=== PATIENT | female | born 1960 | race Caucasian/White ===

== ENCOUNTER 2019-06-16 02:26 | Inpatient (IN) | payer MEDICARE ==
[~2019-06-16] VITALS: Ht 160 cm; Wt 66.2 kg
[2019-06-16] VITALS (7 sets, daily range): BP systolic 105–129; BP diastolic 62–99
[~2019-06-16 02:26] MED LIST: ACET500T68 PO; ALPR-429 PO; CHOL10005 PO; IBUP800T37 PO; MULT1CAP59 PO; TRAM-420 PO
[2019-06-16] MEDS ORDERED: NS(*) 0.9% 500 ML BAG 500 ML ONE (08:16)
[2019-06-16] MEDS ORDERED: PROPOFOL EMUL(*) 10MG/ML 20 ML 20 ML ONE ×2 (09:13→13:43)
[2019-06-16] MEDS ORDERED: PROPOFOL EMUL(*) 10MG/ML 20 ML 60 ML ONE (09:14)
[2019-06-16] MEDS ORDERED: fentaNYL CITR 250 MCG/5 ML AMP ONE (09:17)
[2019-06-16] MEDS ORDERED: LIDOCAINE MPF 1% 5 ML VIAL ONE (09:18)
[2019-06-16] MEDS ORDERED: SUCCINYLCHOL CHL 100MG/5ML SYR IVP ONE (09:19)
[2019-06-16] MEDS ORDERED: NS 0.9% 20 ML SDV 20 ML ONE (09:21)
[2019-06-16] MEDS ORDERED: REMIFENTANIL HCL 1 MG VIAL ONE (09:32)
[2019-06-16] MEDS ORDERED: MIDAZOLAM 2 MG/2 ML VIAL IVP PRN (10:30)
[2019-06-16] MEDS ORDERED: LIDOCAINE/SOD BICARB 8.4% SYR ID ONE (10:30)
[2019-06-16] MEDS ORDERED: NORMOSOL R SOLN(*) 1000 ML BAG 1,000 ML IV PRN (10:30)
[2019-06-16] MEDS ORDERED: FAMOTIDINE 20 MG TAB PO ONE (10:30)
[2019-06-16] MEDS ORDERED: ACETAMINOPHEN 500 MG TAB PO ONE (10:30)
[2019-06-16] MEDS ORDERED: ceFAZolin(*) 2GM/D5W 50ML 50 ML IVPB ONE (10:30)
[2019-06-16] MEDS ORDERED: BACITRACIN 50000 UNIT/VIAL 50,000 UNIT in NS 0.9% IRRIG(*) 1000ML PLCT 1,000 ML IR PRN (10:30)
[2019-06-16] MEDS ORDERED: PREGABALIN 150 MG CAPSULE PO ONE (10:30)
[2019-06-16] MEDS ORDERED: DEXAMETHASONE SOD PHOS 10MG/ML ONE (12:35)
[2019-06-16] MEDS ORDERED: ONDANSETRON 4 MG/2 ML VIAL ONE (12:36)
[2019-06-16] MEDS ORDERED: KETAMINE HCL 200 MG/20 ML MDV ONE ×2 (12:43→13:40)
[2019-06-16] MEDS ORDERED: NS 0.9% IRRIGATION 1000ML PLCT IR ONE (13:43)
[2019-06-16] MEDS ORDERED: fentaNYL CITR 100 MCG/2 ML AMP ONE ×2 (15:25→16:30)
[2019-06-16] MEDS ORDERED: ACETAMINOPHEN(*)1000 MG/100 ML 100 ML IVPB PRN (15:35)
[2019-06-16] MEDS ORDERED: diphenhydrAMINE 25 MG CAP PO PRN (15:35)
[2019-06-16] MEDS ORDERED: BISACODYL 10 MG SUPP PR PRN (15:35)
[2019-06-16] MEDS ORDERED: HYDROmorphone HCL 2 MG/ML SDV IVP PRN (15:35)
[2019-06-16] MEDS ORDERED: FLUSH 10 ML SYR IVP PRN (15:35)
[2019-06-16] MEDS ORDERED: BENZOCAINE/MENTHOL 1 EACH LOZG PO PRN (15:35)
[2019-06-16] MEDS ORDERED: MAGNESIUM HYDROXIDE* 30ML UDCP PO PRN (15:35)
[2019-06-16] MEDS ORDERED: ACETAMINOPHEN 500 MG TAB PO PRN (15:35)
[2019-06-16] MEDS ORDERED: APAP/HYDROCODONE 325/5 TAB PO PRN (15:35)
[2019-06-16] MEDS ORDERED: ONDANSETRON 4 MG/2 ML VIAL IVP PRN (15:35)
[2019-06-16] MEDS ORDERED: DIAZEPAM 5 MG TAB PO PRN (15:35)
[2019-06-16] MEDS ORDERED: LR(*) 1000 ML BAG 1,000 ML IV PRN (15:35)
--- NOTE | 2019-06-16 16:51 | RADIOLOGY IMAGING REPORT ---
FACILITY: [facility] [place] PATIENT NAME: Mis Stovall : 1960 MR: [id number] V: [id number] EXAM DATE: ORDERING PHYSICIAN: ANNABELLE TYLER TECHNOLOGIST: Location: [facility] [place] Patient: Mis Stovall : 1960 Visit/Account:[id number] Date of Sevice: 06/16/2019 Exam type: CERVICAL SPINE 2 OR 3 VIEW History: C5-7 DISC HERNIATION Comparison: May 19, 2019. Findings: Two portable lateral intraoperative views of the cervical spine were submitted. The endotracheal tub e is in place. The first image demonstrates a metallic probe projecting over the anterior aspect of the C5 and C6 vertebral bodies. The second image demonstrates postsurgical changes from anterior fus ion at C5, C6 and C7 with anterior plate screws and intervertebral disc spacers IMPRESSION: 1. As above Report Dictated By: Kelli Elias MD at 06/16/2019 4:42 PM Report E-Signed By: Kelli Elias MD at 06/16/2019 4:43 PM WSN:[email or web address]
[2019-06-16] MEDS ORDERED: ALPR-461 PO (17:25)
[2019-06-16] MEDS: oxyCODONE HCL 5 MG CAP PO PRN ×2 (17:36→21:26)
--- NOTE | 2019-06-16 17:39 | Hospitalist Consultation ---
History of Present Illness Requesting Physician Dr. Mendez Reason for Consult Depression History of Present Illness This patient was admitted for cervical spine surgery. It is reported that the surgery went well and was without complication. History Problems: (1) Depression Home Meds Reported Medications Alprazolam (ALPRAZOLAM) 1 Mg Tab.rapdis, 1 TAB PO QHS, #3 TAB 06/16/19 Tramadol Hcl (TRAMADOL HCL) 50 Mg Tablet, 50-100 MG PO Q4-6H, TAB 06/10/19 Ibuprofen (IBUPROFEN) 800 Mg Tablet, 1 TAB PO Q8H PRN for PAIN, TAB 06/10/19 Acetaminophen (TYLENOL EXTRA STRENGTH) 500 Mg Tablet, 500 MG PO TID, TAB 06/10/19 Multivitamin (MULTIVITAMINS) 1 Each Capsule, 1 EACH PO QDAY, CAPSULE 06/10/19 Cholecalciferol (Vitamin D3) (VITAMIN D3) 1,000 Unit Tablet, 1000 UNIT PO QDAY, TAB 06/10/19 Discontinued Reported Medications Alprazolam (XANAX) 0.5 Mg Tablet, 1 TAB PO QHS, TAB 06/10/19 Allergies: Coded Allergies: No Known Drug Allergies (Unverified , 06/10/19) Patient History: FH: diabetes mellitus MOTHER FH: lung cancer MOTHER Hx Smoking: Yes (1/2 PPD X 40 YEARS) Smoking Status: Current: Every Day Smoker When Quit Tobacco?: trying to quit currently Caffeine Intake: Coffee Caffeine/Cups Per Day: decaf coffee Hx Alcohol Use: Yes Hx Substance Use Disorder: No Social Drug Use: Former Social Drugs: Meth, Mushrooms, Cocaine When Quit Social Drugs?: 1980s Review of Systems All Systems Reviewed/Normal: Yes Exam Vital Signs Vital Signs Date Time Temp Pulse Resp B/P (MAP) Pulse Ox O2 Delivery O2 Flow Rate FiO2 06/16/19 17:06 98.0 71 16 125/89 (101) 98 Nasal Cannula 2.0 Cardiovascular: Regular Rate and Rhythm Respiratory: Clear to Auscultation Assessment and Plan Problems: (1) Depression Assessment & Plan: She does use alprazolam for sleep. Venous Thromboembolism Antithrombotics Is Pt On Any Antithrombotics?: No JEFFREY OLVERA DO Jun 16, 2019 17:39
[2019-06-16] MEDS ORDERED: ALPRAZolam 1 MG TAB PO PRN (17:40)
--- NOTE | 2019-06-16 18:35 | NUR ---
Physical Therapy Impression PT eval completed followed by ambulation to/from BR with FWW and CGA. Pt notes that she will be staying with family and will have 3 stairs to enter home with rail. Physical Therapy Goals 1. Pt to be SBA/CGA for bed mobility and sup<>sit trnsfrs 2. Pt to be SBA/CGA for sit to/from stand transfers 3. Pt to doug ambulation x 100' with least restrictive device and SBA/CGA 4. Pt to doug up/down stairs with rail to simulate entry to home with CGA/SBA Patient's Goals
[2019-06-16] MEDS: NICOTINE 7 MG/24 HR PATCH TD SCH (19:55)
[2019-06-16] MEDS: DOCUSATE SODIUM 100 MG CAP PO SCH (21:23)
[2019-06-16] MEDS: ceFAZolin(*) 2GM/D5W 50ML 50 ML IVPB SCH (21:25)
[2019-06-17 00:17] VITALS: BP 104/68
[2019-06-17] MEDS: oxyCODONE HCL 5 MG CAP PO PRN ×3 (00:25→11:53)
[2019-06-17] MEDS: ceFAZolin(*) 2GM/D5W 50ML 50 ML IVPB SCH ×2 (04:15→11:53)
--- NOTE | 2019-06-17 04:32 | OPERATIVE REPORT 1 ---
EVENT DATE: June 16, 2019 SURGEON: James Mendez MD ANESTHESIOLOGIST: Bob Dahl MD ANESTHESIA: General endotracheal anesthesia. 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 PROCEDURE PERFORMED C5-C6 anterior cervical diskectomy and fusion and C6-C7 anterior cervical diskectomy and fusion with placement of interbody devices and placement of anterior cervical plate. INTRAVENOUS FLUIDS 2700 mL. ESTIMATED BLOOD LOSS 30 mL. IMPLANTS A 7.5 mm size medium lordotic interbody device from [employer], and a 6.5 mm size medium interbody device from [employer], a two-level anterior cervical plate from [employer], six 14 mm fixation screws from [employer], and finally a 3 mL [employer]. SPECIMENS None. DRAINS A 10-Yoruba round Carlos Enrique- drain to the anterior cervical spine. COMPLICATIONS None. DISPOSITION Postanesthesia care unit. INDICATIONS FOR SURGERY Mis Gipson is a 59-year-old female who presented with a complaint of neck pain and axial headaches. Over the course o the last five or six weeks prior to presentation, she developed bilateral arm numbness in an ulnar nerve distribution bilaterally, and felt that her legs were not functioning right, tripping over her own feet and having significant issues with her legs being clumsy. She has also had episodes where she felt like her urine stream was difficult to initiate, and where she had incomplete bladder emptying. She had also had multiple episodes of fecal incontinence. Physical examination revealed difficulty performing tandem gait testing, but a negative Romberg. She had neck pain only with Spurling maneuver, and strength was intact while sensation was subjectively diminished throughout bilateral hands. She had a strongly positive Tinel's at the elbow on the right, weaker on the left, and negative Ronak sign bilaterally. Her imaging studies showed significant cord flattening at C5-C6 and C6-C7 secondary to degenerative disk disease and anterior and posterior osteophyte formation, and there was cord signal change and narrowing of the cord at both C5-C6 and C6-C7. Her MRI was two years old, and so I sent her for a new one, which showed similar abnormalities, again including significant cord signal change and foraminal narrowing as well as central narrowing at C5-C6 and C6-C7. Secondary to all this, she was offered and elected to undergo C5-C6/C6-C7 anterior cervical diskectomy and fusion. Prior to surgery, I explained in detail to the patient the possible risks of surgery. These risks include bleeding, infection, damage to surrounding structures, nerve root injury, spinal fluid leak, spinal cord injury, persistent and/or worsening pain, , blindness, sexual dysfunction, autonomic nervous system dysfunction, as well as other unforeseen medical and surgical complications. An understanding that in general, spinal surgery is more predictive at improving extremity discomfort than axial spine pain, and better at halting the progression of myelopathy than improving symptoms from myelopathy, was also stressed. Further discussion of the risks related to an anterior cervical approach, including swallowing difficulties, hoarseness, need for tube feeding, et cetera, was held. DESCRIPTION OF PROCEDURE On the day of surgery, the patient was met in the preoperative hold area and all questions were answered. The operative sites were identified and marked by myself. Patient was brought in good condition to the operating room and, after succumbing to anesthesia, was positioned in the supine position on a standard OR bed. Her arms were loosely secured at all sides to afford access to the anterior cervical spine. There was no change in neurophysiologic monitoring during positioning. A final time-out was undertaken by members of the operating team to confirm correct patient, correct levels, and correct surgery. The patient was then prepped and draped in the standard sterile orthopedic fashion, and a transverse incision was made overlying the intended surgical levels. Sharp dissection was carried out down to the platysma, which was divided. Blunt finger dissection was carried out medial to the carotid sheath as well as the sternocleidomastoid muscle, coming down onto the anterior cervical spine. Soft tissues were elevated off the anterior cervical spine, including longus colli muscles, in a subperiosteal manner. A lateral radiograph was obtained to confirm appropriate spinal levels. Beginning at the C5-C6 level, I performed a diskectomy. Osteophytes were removed anteriorly a high-speed bur, and then the annulus was incised with a #15 blade, and progressively smaller curettes were used to perform a diskectomy working from ventral to dorsal and out to the width of the uncovertebral joints bilaterally. Once I reached the posterior annulus and the posterior longitudinal ligament, I teased my way through these with a very small forward- angled curette and then took down the posterior annulus as well as the posterior longitudinal ligament with #1 and #2 Kerrison punches. I was also able to remove any persistent osteophytes using a combination of a high-speed bur and #1 and #2 Kerrison punches. Once the decompression was complete, I ensured that the nerve hook could be passed behind the vertebral bodies to ensure no persistent cord compression, and also out bilateral foramina, ensuring no further foraminal narrowing. This procedure was repeated at the C6-C7 level. The fusion procedure at C5-C6 was performed using a 7.5 mm size medium interbody device from [employer]. This was tapped into place and tapped flush with the anterior C-spine. At the C6-C7 level, I selected a 6.5 mm size medium device, which was also tapped into place and tapped flush with the anterior cervical spine. Once the fusion procedure had been performed at both levels, we turned our attention to placement of anterior cervical plate. The anterior cervical spine was sculpted with a high-speed bur in order to accommodate the plate. An appropriate-length two-level plate was placed, and the drill was used to drill the first screw and ensure that the alignment of the plate was appropriate. For the rest of the holes, I used the awl as a starter and then used the self-tapping screws in all five of those screw holes. Again, we placed a two-level plate with six screws. We then obtained a final radiograph, which showed all of the implants to be in appropriate position, and which also showed that we had significantly improved disk height at both levels. We obtained final motors with our neurophysiologic monitoring colleague, and these were unchanged from baseline. The wound was then irrigated with copious sterile saline solution, and meticulous hemostasis was obtained. We then closed the wound in layers using interrupted sutures for the platysma, inverted interrupted sutures for the subcutaneous tissue, and then a running subcuticular skin stitch. Sponge and needle counts were correct x2. POSTOPERATIVE CARE PLAN Ms. Gipson will remain in the hospital overnight, perhaps a little longer. She will have her drain removed once output is appropriate, and she will then follow up with me two weeks postoperatively for wound check and examination. ANITRA
[2019-06-17 04:44] VITALS: BP 121/82
[2019-06-17 07:25] VITALS: BP 101/77
[2019-06-17] MEDS: NICOTINE 7 MG/24 HR PATCH TD SCH (08:24)
[2019-06-17] MEDS: DOCUSATE SODIUM 100 MG CAP PO SCH (08:24)
--- NOTE | 2019-06-17 08:57 | RADIOLOGY IMAGING REPORT ---
FACILITY: [facility] PATIENT NAME: Mis Stovall : 1960 MR: [id number] V: [id number] EXAM DATE: ORDERING PHYSICIAN: ANNABELLE TYLER TECHNOLOGIST: Location: [facility] Patient: Mis Stovall : 1960 Visit/Account:[id number] Date of Sevice: 06/17/2019 CERVICAL SPINE 2 OR 3 VIEW Indication: POST OP Comparison: Cervical spine radiograph 06/16/2019. Findings: There are postoperative changes from anterior cervical discectomy and fusion at C5, C6, and C7. Alignment is maintained. Remaining disc spaces are normal. IMPRESSION: Postoperative changes ACDF at C5-C7. Report Dictated By: Vasu Ramos at 06/17/2019 8:47 AM Report E-Signed By: Vasu Ramos at 06/17/2019 8:48 AM WSN:[email or web address]
--- NOTE | 2019-06-17 09:08 | NUR ---
Physical Therapy Impression Pt is safe to d/c home from a mobility stand point when medically appropriate. PT instructed pt in log roll technique, pt completed with Crescencio sup<>sit. OVERHEAD CRANE INSPECTOR provided for mobility, but pt declines use of RW, will likely utilize furniture to stabilize herself upon initial d/c. Ambulation x150' with OVERHEAD CRANE INSPECTOR and good tolerance. PT instruction for asc/desc 3x1 platform stair, pt with good safety. PT instructed pt in donning/doffing c collar while standing in front of mirror. No further PT visits planned at this time. Pt will d/c to her son's home, her DIL will be home to assist as needed. Physical Therapy Goals Patient's Goals
[2019-06-17] MEDS ORDERED: NICO1PAT86 TD (10:03)
--- NOTE | 2019-06-17 10:09 | Hospitalist Progress Note ---
Subjective Progress Notes Subjective No acute events overnight. She has expressed interest in quitting smoking. Pain has been managed well. She has been doing well out of bed. Patient Complains of: Neurological: No: Syncope, Confusion Cardiovascular: No: Chest Pain, Palpitations Respiratory: No: Congestion, Shortness of Breath Gastrointestinal: No Nausea Physical Exam Vital Signs Date Time Temp Pulse Resp B/P (MAP) Pulse Ox O2 Delivery O2 Flow Rate FiO2 06/17/19 08:26 95 06/17/19 08:10 Room Air 06/17/19 07:25 98.5 72 20 101/77 (85) 06/17/19 04:44 2.0 Intake and Output 06/17/19 01:03 Intake Total 4000 ml Output Total 820 ml Balance 3180 ml Intake Oral 100 ml IV Total 1950 ml Other 1950 ml Output Urine Total 750 ml Estimated Blood Loss 30 ml Other 40 ml # Voids 1 General Appearance: Alert, Awake, No Acute Distress Neuro: No Gross deficits Cardiovascular: Regular Rate and Rhythm Respiratory: No Respiratory Distress Psych: Alert & Oriented X3, Appropriate Mood & Affect Assessment and Plan Problems: (1) Status post cervical discectomy Assessment & Plan: Surgery per Dr. Mendez. Ortho to manage pain. She tolerated surgery well and has been doing well getting out of bed. PT is working with her. She is medically appropriate for discharge when cleared by PT and Surgery. (2) Smoking Assessment & Plan: She is a current smoker and has expressed interest in quitting. She was started on a nicotine patch. (3) Depression Assessment & Plan: She use alprazolam for sleep. Copies to: ANNABELLE MENDEZ MD ; Exam Sepsis Risk: No Definite Risk CHELY BEY Jun 17, 2019 10:09
[2019-06-17] MEDS ORDERED: LOR5/325 PO (10:37)
[2019-06-17] MEDS ORDERED: DOCU240C84 PO (10:38)
[2019-06-17 11:51] VITALS: BP 124/87
[2019-06-17 15:09] VITALS: Ht 160 cm; Wt 66.2 kg
== END 2019-06-17 13:05 | disposition home or self-care (01) | DRG 473 ==
LOC: OR 02:26 → MED 16:55
PROVIDERS: ADMIT Orthopaedic Surgery; ATTEND Orthopaedic Surgery
PROC: 0RT30ZZ Resection of Cervical Vertebral Disc, Open Approach (ICD-10-PCS; 2019-06-16)
PROC: 0RG20A0 Fusion of 2 or more Cervical Vertebral Joints with Interbody Fusion Device, Anterior Approach, Anterior Column, Open Approach (ICD-10-PCS; principal; 2019-06-16 12:18)
DX: M50.022 Cervical disc disorder at C5-C6 level with myelopathy (principal); F32.9 Major depressive disorder, single episode, unspecified; F17.210 Nicotine dependence, cigarettes, uncomplicated; M25.78 Osteophyte, vertebrae
CPT/HCPCS: 36415; 72020; 72040; 86850; 86900; 86901; 95940; 97161; C1713; J0330; J0690; J1100; J2001; J2250; J2405; J2704; J3010; J3490; J7040; J7050